=== PATIENT | female | born 1965 | race Caucasian/White ===

== ENCOUNTER 2020-06-03 17:34 | Outpatient (REF) | payer OTHER, SELFPAY ==
--- NOTE | 2020-06-03 17:39 | MM_ITS ---
EXAMINATION: MM SCREENING DIGITAL BREAST TOMOSYNTHESIS, BILATERAL CLINICAL INFORMATION: Screening. Asymptomatic. Family history breast cancer, mother. The lifetime risk of breast cancer based on the Tyrer-Cuzick Model is 17%. COMPARISON: Mammography: 03/16/2019, 03/09/2018, 02/25/2017 TECHNIQUE: Digital breast tomosynthesis is performed in both the craniocaudal and mediolateral oblique views along with computer-aided detection (CAD). Synthesized 2D images are generated from the tomosynthesis. FINDINGS: There are scattered areas of fibroglandular density (ACR BI-RADS breast composition Category b). There is inhomogeneous parenchymal pattern with scattered stable asymmetries. There is no developing density or interval mass or architectural abnormality or suspicious calcifications. The axilla and skin contours are unremarkable. MM/MM tomosynthesis screening BI IMPRESSION: No significant changes from prior studies. ASSESSMENT: BI-RADS 2: Benign RECOMMENDATION: Routine annual mammography screening. This patient's information was entered into a reminder system with a target due date for their next mammogram.
== END 2020-06-03 17:35 | disposition home or self-care (01) ==
LOC: HO.MAMMO 17:34
PROVIDERS: Visit Provider Hospitalist
DX: Z12.31 Encounter for screening mammogram for malignant neoplasm of breast (principal)
CPT/HCPCS: 77063; 77067

== ENCOUNTER 2021-06-15 13:38 | Outpatient (REF) | payer OTHER, SELFPAY ==
--- NOTE | ~2021-06-15 | MM_ITS ---
EXAMINATION: MM SCREENING DIGITAL BREAST TOMOSYNTHESIS, BILATERAL CLINICAL INFORMATION: Screening. Asymptomatic. The lifetime risk of breast cancer based on the Tyrer-Cuzick Model is 14%. COMPARISON: Mammography: 06/03/2020, 03/16/2019, 03/09/2018 TECHNIQUE: Digital breast tomosynthesis is performed in both the craniocaudal and mediolateral oblique views along with computer-aided detection (CAD). Synthesized 2D images are generated from the tomosynthesis. FINDINGS: There are scattered areas of fibroglandular density (ACR BI-RADS breast composition Category b). There are no significant masses, abnormal calcifications, or other abnormalities. MM/MM tomosynthesis screening BI IMPRESSION: No mammographic evidence of malignancy. ASSESSMENT: BI-RADS 1: Negative RECOMMENDATION: Routine annual mammography screening. This patient's information was entered into a reminder system with a target due date for their next mammogram.
== END 2021-06-15 13:39 | disposition home or self-care (01) ==
LOC: HO.MAMMO 13:38
PROVIDERS: Visit Provider Hospitalist
DX: Z12.31 Encounter for screening mammogram for malignant neoplasm of breast (principal)
CPT/HCPCS: 77063; 77067

== ENCOUNTER 2022-08-25 13:11 | Outpatient (REF) | payer OTHER, SELFPAY ==
--- NOTE | ~2022-08-25 | MM_ITS ---
EXAMINATION: MM SCREENING DIGITAL BREAST TOMOSYNTHESIS, BILATERAL CLINICAL INFORMATION: Screening. Asymptomatic. The lifetime risk of breast cancer based on the Tyrer-Cuzick Model is 17.7%. COMPARISON: Mammography: 06/15/2021 and studies dating back to 08/06/2015. TECHNIQUE: Digital breast tomosynthesis is performed in both the craniocaudal and mediolateral oblique views along with computer-aided detection (CAD). Synthesized 2D images are generated from the tomosynthesis. FINDINGS: There are scattered areas of fibroglandular density (ACR BI-RADS breast composition Category b). On right mediolateral oblique there is an asymmetric density for which spot compression view is recommended. This may represent superimposition of fibroglandular tissue. No definite craniocaudal view correlate is identified. Within the superior aspect of the left breast there is a density present which now has some irregular margins but again this may represent superimposition of fibroglandular tissue. Spot compression view in mediolateral oblique projection is recommended as well as 90 degrees mediolateral view. MM/MM tomosynthesis screening BI IMPRESSION: Bilateral breast densities for further evaluation as described. ASSESSMENT: BI-RADS 0: Incomplete - Need Additional Imaging Evaluation RECOMMENDATION: 1. Additional views of the bilateral breasts. 2. Targeted ultrasound if warranted after review of the additional views. 3. Radiology department staff will contact the patient for additional imaging. This patient's information was entered into a reminder system with a target due date for their next mammogram.
== END 2022-08-25 13:12 | disposition home or self-care (01) ==
LOC: HO.MAMMO 13:11
PROVIDERS: PCP Family Medicine; Visit Provider Nurse Practitioner Adult Health
DX: Z12.31 Encounter for screening mammogram for malignant neoplasm of breast (principal)
CPT/HCPCS: 77063; 77067

== ENCOUNTER 2022-09-07 13:13 | Outpatient (REF) | payer OTHER, SELFPAY ==
--- NOTE | ~2022-09-07 | US_ITS ---
Diagnostic right breast ultrasound is included in a single combined report with the bilateral diagnostic mammography under accession number [id number].
--- NOTE | ~2022-09-07 | MM_ITS ---
EXAMINATION: MM DIAGNOSTIC DIGITAL BREAST TOMOSYNTHESIS, BILATERAL US DIAGNOSTIC ULTRASOUND BREAST, RIGHT CLINICAL INFORMATION: Recall from screening for asymmetric densities anterior upper left breast limited to MLO view, and asymmetric density 9:30 right breast limited to MLO view. Suspect summation artifact. Family history breast cancer, mother, age 65. TC score 18%. COMPARISON: Mammography: Multiple prior exams, most recent 08/25/2022. TECHNIQUE: Digital breast tomosynthesis is performed. 2D images are generated from the tomosynthesis. The following views are obtained: Left: MLO, spot MLO x2; Right: ML, spot MLO x3. Ultrasound right breast is targeted to the outer breast using grayscale imaging and color Doppler without and with harmonics. FINDINGS: There are scattered areas of fibroglandular density (ACR BI-RADS breast composition Category b). Additional views left breast demonstrate no asymmetric density, developing density, or architectural abnormality. Fibroglandular tissue in the targeted area appears similar to prior studies. Left breast is unremarkable and may be reassessed again at next annual mammography. Additional views right breast demonstrate probable summation artifact in the area of concern which appears less conspicuous on the additional views. There is no underlying mass or architectural abnormality. Ultrasound right breast demonstrates no cystic or solid mass or architectural abnormality. No focal duct ectasia. No focal shadowing. Results are discussed with the patient at time of visit. Probable summation artifact right breast. Given the family history, short interval follow-up right breast will be recommended in 6 months. Ultrasound may be performed as well as warranted depending on follow-up findings. MM/MM tomosynthesis added view BI IMPRESSION: Left: -Additional views show no focal abnormality. -No significant change from prior studies. Right: -Additional views suggest probable summation artifact. -Normal right breast ultrasound. ASSESSMENT: BI-RADS 3: Probably Benign RECOMMENDATION: Diagnostic right mammography in 6 months. This patient's information was entered into a reminder system with a target due date for their next mammogram.
== END 2022-09-07 13:14 | disposition home or self-care (01) ==
LOC: HO.MAMMO 13:13
PROVIDERS: Visit Provider Nurse Practitioner Adult Health
DX: R92.2 Inconclusive mammogram (principal)
CPT/HCPCS: 76642; 77062; 77066

== ENCOUNTER 2023-03-08 13:47 | Outpatient (REF) | payer OTHER, SELFPAY ==
--- NOTE | ~2023-03-08 | MM_ITS ---
EXAMINATION: MM DIAGNOSTIC DIGITAL BREAST TOMOSYNTHESIS, right breast CLINICAL INFORMATION: Follow-up probably benign parenchymal density central right breast MLO view. Prior ultrasound was negative. No correlate on CC view. The lifetime risk of breast cancer based on the Tyrer-Cuzick Model is 18%. COMPARISON: Mammography: 09/07/2022, as well as ultrasound 09/07/2022. Mammography 06/15/2021, and dating back to 2018. TECHNIQUE: Digital right breast tomosynthesis is performed in both the craniocaudal and mediolateral oblique views along with computer-aided detection (CAD). Synthesized 2D images are generated from the tomosynthesis. In addition, 3-D small paddle spot compression view of the right breast was performed in the mediolateral projection. FINDINGS: There are scattered areas of fibroglandular density (ACR BI-RADS breast composition Category b). There are no suspicious masses, suspicious grouped calcifications, or areas of architectural distortion within the right breast. There is a stable focus of prominent breast tissue in the central right breast on the MLO projection, most consistent with a island of normal dense breast parenchyma. No correlate evident on the right CC view. Findings remain probably benign, related to summation artifact of normal breast tissue, and will be evaluated in 6 months when the patient is due for bilateral screening. Results are provided to the patient at time of visit by the technologist. MM/MM tomosynthesis diagnostic RT IMPRESSION: Stable probably benign findings right breast, most notable central CC projection most likely representing summation artifact and a prominent island of normal breast parenchyma. Six-month follow-up imaging recommended when the patient is due for bilateral screening. ASSESSMENT: BI-RADS BI-RADS 3 - Probably benign finding(s) - 6 month follow-up suggested RECOMMENDATION: 6 Month F/U This patient's information was entered into a reminder system with a target due date for their next mammogram.
== END 2023-03-08 13:48 | disposition home or self-care (01) ==
LOC: HO.MAMMO 13:47
PROVIDERS: Visit Provider Family Medicine
DX: R92.8 Other abnormal and inconclusive findings on diagnostic imaging of breast (principal)
CPT/HCPCS: 77061; 77065

== ENCOUNTER → 2023-03-08 14:00 | Outpatient (BNV) | payer OTHER, SELFPAY | PROVIDERS: Visit Provider Radiology Diagnostic Radiology | DX: R92.2 Inconclusive mammogram (principal) | CPT/HCPCS: 77065 ==

== ENCOUNTER 2023-09-13 12:40 | Outpatient (REF) | payer OTHER, SELFPAY ==
--- NOTE | ~2023-09-13 | MM_ITS ---
EXAMINATION: MM DIAGNOSTIC DIGITAL BREAST TOMOSYNTHESIS, BILATERAL CLINICAL INFORMATION: The patient presents for recommended short interval follow-up of a centrally located right breast focal asymmetry noted in February and August 2022. COMPARISON: Mammography: This study is compared to prior mammograms dating back to 2018. TECHNIQUE: Digital breast tomosynthesis is performed in both the craniocaudal and mediolateral oblique views along with computer-aided detection (CAD). Synthesized 2D images are generated from the tomosynthesis. A full lateral view of the right breast was obtained. FINDINGS: There are scattered areas of fibroglandular density (ACR BI-RADS breast composition Category b). There are no significant masses, abnormal calcifications, or other abnormalities in either breast. The previously noted centrally located focal asymmetry of the right breast represents overlap of normal glandular tissue. There is no mammographic evidence of malignancy. MM/MM tomosynthesis diagnostic BI IMPRESSION: No mammographic evidence of malignancy. ASSESSMENT: BI-RADS BI-RADS 1 - Negative RECOMMENDATION: 1 year F/U Results were provided to the patient at time of visit by the technologist. This patient's information was entered into a reminder system with a target due date for their next mammogram.
== END 2023-09-13 12:41 | disposition home or self-care (01) ==
LOC: HO.MAMMO 12:40
PROVIDERS: PCP Family Medicine; Visit Provider Family Medicine
DX: R92.30 Dense breasts, unspecified (principal)
CPT/HCPCS: 77062; 77066

== ENCOUNTER → 2023-09-13 13:00 | Outpatient (BNV) | payer OTHER, SELFPAY | PROVIDERS: PCP Family Medicine; Visit Provider Radiology Diagnostic Radiology | DX: R92.8 Other abnormal and inconclusive findings on diagnostic imaging of breast (principal) | CPT/HCPCS: 77062; 77066 ==

== ENCOUNTER 2023-09-29 12:29 | Outpatient (AMB) | payer OTHER, SELFPAY ==
--- NOTE | 2023-09-29 12:40 | AM.OFFWIN_ITS ---
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 Patient Tobacco Use Status: Never used Tobacco Accompanied by: Spouse Allergies levothyroxine Adverse Reaction (Mild, Verified 09/29/23 12:43) Vomiting Do you need a note to return to daycare/school/sports/work: No HPI HPI Comments History of Present Illness Details 58 y/o female patient who presents to [facility] work in clinic with c/o nausea associated with chest pain. Symptoms started this morning and lasted 20 minutes. Reports that symptoms have since been resolved. Denies any h/o heart disease. She does endorse Psych condition Depression and anxiety. PFSH Social History Patient Tobacco Use Status: Never used Tobacco Review of Systems Const All systems reviewed & are unremarkable except as noted in HPI and below Physical Exam Vital Signs: Last Vital Signs Pulse 86 09/29/23 12:42 BP 120/90 H 09/29/23 12:42 Pulse Ox 98 09/29/23 12:42 Oxygen Delivery Method Room Air 09/29/23 12:42 Const General: comfortable and no acute distress Nutritional Appearance: well nourished Orientation/consciousness: patient oriented x3 HEENT Head: Yes normocephalic Ears: external ears normal and TM's normal bilaterally General nose exam: Normal nasal mucous membranes and turbinates present Face and sinus: Yes sinuses nontender Throat: Yes posterior oropharynx normal Resp Effort & Inspection: normal respiratory effort Auscultation: clear to auscultation bilaterally Cardio Rate: regular rate Rhythm: regular rhythm Neuro General: patient oriented x3 Psych Speech and movement: Clear speech present Affect: normal affect Attitude: cooperative Thought process: Normal thought process present Thought content: suicidality, no homicidality, no delusions, no hallucinations and No Depressive thoughts present Judgement: Good judgement present (Psych) Office Procedures EKG [id number]-[id number], Complete Assessment & Plan Assessment & Plan (1) Chest pain: Code(s): R07.9 - Chest pain, unspecified Qualifiers: Chest pain type: unspecified Qualified Code(s): R07.9 - Chest pain, unspecified Plan: - EKG WNL - Rest - Prob GERD - Instructed Pt to go to ED if symptoms return. Orders: Orders AMB EKG-In Office Today R07.9 - Chest pain, unspecified Coding Level of Care Code Est Pt Level 3 (92345) Diagnoses Chest pain, unspecified type R07.9 Chest pain type: unspecified CPT Codes EKG - CPT: 74509-[id number], Complete ([id number]) Time Spent (min) 15
[2023-09-29 12:42] VITALS: BP 120/90; PULSE 86; O2SAT 98
== END 2023-09-29 14:27 | disposition home or self-care (01) ==
PROVIDERS: PCP Family Medicine; Visit Provider Nurse Practitioner Family
DX: R07.9 Chest pain, unspecified (principal)
CPT/HCPCS: 93000; 99213

== ENCOUNTER 2024-10-25 14:54 | Outpatient (REF) | payer OTHER, SELFPAY ==
--- OUTSIDE RECORDS SUMMARY | 2024-10-25 16:24 | XMS_ITS | Patient Health Record ---
Author Organization [facility], [facility] Address [address] [place] [address] [phone] Support Name Relationship Address Phone SHASHI ADDISON Guarantor Unknown Unavailabl e REASON FOR REFERRAL No Information PLAN OF TREATMENT No Information Insurance Providers Payer Name Payer Address Payer Phone Subscriber Number Group Number Insured Name Patient Relationship to Insured Coverage Start Date Coverage End Date HERNESTO PRYOR [id number] DOMIN[place] [id number] [id number] SHASHI DELGADILLO Self - patient is the insured 0
== END 2024-10-25 14:55 | disposition home or self-care (01) ==
LOC: HO.MAMMO 14:54
PROVIDERS: PCP Family Medicine; Visit Provider Family Medicine
DX: Z12.31 Encounter for screening mammogram for malignant neoplasm of breast (principal)
CPT/HCPCS: 77063; 77067

== ENCOUNTER → 2024-10-25 15:15 | Outpatient (BNV) | payer OTHER, SELFPAY | PROVIDERS: PCP Family Medicine; Visit Provider Internal Medicine | DX: Z12.31 Encounter for screening mammogram for malignant neoplasm of breast (principal) | CPT/HCPCS: 77063; 77067 ==